=== PATIENT | male | born 1990 | race Two or more races ===

== ENCOUNTER 2018-12-30 18:57 | Emergency (ER) | payer OTHER ==
[~2018-12-30] VITALS: Ht 182.9 cm; Wt 67.1 kg
[2018-12-30] MEDS ORDERED: DiphenhydrAMINE 50mg/ml Inj IVP ONE (19:15)
[2018-12-30] MEDS ORDERED: Metoclopramide 10mg/2ml Inj IVP ONE (19:15)
--- NOTE | 2018-12-30 19:35 | NUR ---
ED Nurse Note: RECIEVED PT FROM [facility] AWAKE, ALERT AND ORIENTED X 4, TP YELLING AND SCREAMING THAT HE HAS ABDOMINAL PAIN, PT STATES HAS HX OF IBS, DENIES CP, NO SOB OR LAABORED BREATHING, PT ASSITED TO ROOM AND [facility]WE[facility] [employer]END[employer], WILL RESUME CARE ORDERED.
[2018-12-30 20:05] VITALS: BP 126/77
--- NOTE | 2018-12-30 20:20 | NUR ---
ED Nurse Note: PT IV LINE STARTED AND MEDS GIVEN, PT CONTINUES TO YELL AND SCREAM THAT HE HAS ABDOMINAL PAIN, PT ANGRY AND WANTS PAIN MEDS, MD AWARE, NO PAIN MEDS GIVEN SO TP WANTS TO LEAVE, MD SAT AND EXPLAINED MEDS GIVENA ND TO GIVE TRY, PT LEFT AMA, PT AMBULATED OUT OF DEPARTMENT, NO EMESIS OR DISTRESS NOTED.
[2018-12-30 20:24] VITALS: BP 117/73
[2018-12-30 20:47] LABS: BASOPHILS % (AUTO) 1.2 % (0.0-2.0); HEMATOCRIT 43.7 % (42.0-52.0); HEMOGLOBIN 14.4 G/DL (14.2-18.0); MEAN CORPUSCULAR VOLUME 105 FL (80-99); NEUTROPHILS % (AUTO) 53.8 % (45.0-75.0); PLATELET COUNT 229 K/UL (150-450); RED BLOOD COUNT 4.18 M/UL (4.70-6.10); RED CELL DISTRIBUTION WIDTH 13.1 % (11.6-14.8); WHITE BLOOD COUNT 6.6 K/UL (4.8-10.8)
[2018-12-30 20:55] LABS: ANION GAP 10 mmol/L (5-15); BLOOD UREA NITROGEN 14 mg/dL (7-18); CALCIUM 8.9 MG/DL (8.5-10.1); CARBON DIOXIDE 25 MMOL/L (21-32); CHLORIDE 105 MMOL/L (98-107); CREATININE 1.1 MG/DL (0.55-1.30); POTASSIUM 3.7 MMOL/L (3.5-5.1); SODIUM 140 MMOL/L (136-145)
[2018-12-30 20:59] LABS: ALANINE AMINOTRANSFERASE 22 U/L (12-78); ALBUMIN 3.9 G/DL (3.4-5.0); ALBUMIN/GLOBULIN RATIO 1.2 (1.0-2.7); ALKALINE PHOSPHATASE 101 U/L (46-116); ASPARTATE AMINO TRANSFERASE 16 U/L (15-37); BILIRUBIN,TOTAL 0.3 MG/DL (0.2-1.0)
--- NOTE | 2018-12-30 21:16 | Emergency Room Report ---
History of Present Illness General Chief Complaint: Abdominal Pain Source: EMS Present Illness Allergies: Coded Allergies: No Known Allergies (Unverified , 12/30/18) Nursing Documentation-[facility] Past Medical History: No History, Except For Hx Gastrointestinal Problems: Yes - IBS Physical Exam Vital Signs Date Time Temp Pulse Resp B/P (MAP) Pulse Ox O2 Delivery O2 Flow Rate FiO2 12/30/18 18:42 98.1 80 18 117/73 100 Room Air Medical Decision Making Diagnostic Impression: Primary Impression: Abdominal pain Labs Test 12/30/18 19:45 White Blood Count 6.6 K/UL (4.8-10.8) Red Blood Count 4.18 M/UL (4.70-6.10) Hemoglobin 14.4 G/DL (14.2-18.0) Hematocrit 43.7 % (42.0-52.0) Mean Corpuscular Volume 105 FL (80-99) Mean Corpuscular Hemoglobin 34.4 PG (27.0-31.0) Mean Corpuscular Hemoglobin Concent 32.9 G/DL (32.0-36.0) Red Cell Distribution Width 13.1 % (11.6-14.8) Platelet Count 229 K/UL (150-450) Mean Platelet Volume 6.8 FL (6.5-10.1) Neutrophils (%) (Auto) 53.8 % (45.0-75.0) Lymphocytes (%) (Auto) 37.0 % (20.0-45.0) Monocytes (%) (Auto) 6.0 % (1.0-10.0) Eosinophils (%) (Auto) 2.0 % (0.0-3.0) Basophils (%) (Auto) 1.2 % (0.0-2.0) Sodium Level 140 MMOL/L (136-145) Potassium Level 3.7 MMOL/L (3.5-5.1) Chloride Level 105 MMOL/L (98-107) Carbon Dioxide Level 25 MMOL/L (21-32) Anion Gap 10 mmol/L (5-15) Blood Urea Nitrogen 14 mg/dL (7-18) Creatinine 1.1 MG/DL (0.55-1.30) Estimat Glomerular Filtration Rate > 60 mL/min (>60) Glucose Level 88 MG/DL (74-106) Calcium Level 8.9 MG/DL (8.5-10.1) Total Bilirubin 0.3 MG/DL (0.2-1.0) Aspartate Amino Transf (AST/SGOT) 16 U/L (15-37) Alanine Aminotransferase (ALT/SGPT) 22 U/L (12-78) Alkaline Phosphatase 101 U/L (46-116) Total Protein 7.1 G/DL (6.4-8.2) Albumin 3.9 G/DL (3.4-5.0) Globulin 3.2 g/dL Albumin/Globulin Ratio 1.2 (1.0-2.7) Last Vital Signs Date Time Temp Pulse Resp B/P (MAP) Pulse Ox O2 Delivery O2 Flow Rate FiO2 12/30/18 20:24 98.1 18 117/73 100 Room Air 12/30/18 20:05 88 Status: unchanged Disposition: AGAINST MEDICAL ADVICE Condition: Stable Pravin Dunlap DO Dec 30, 2018 21:16
== END 2018-12-30 20:20 | disposition left against medical advice (07) ==
LOC: EDBD 18:57 → EMR 19:30
DX: R10.9 Unspecified abdominal pain (principal); Z53.21 Procedure and treatment not carried out due to patient leaving prior to being seen by health care provider
CPT/HCPCS: 36415; 80053; 85025; 96361; 96374; 96375; 99284; J1200; J2765